=== PATIENT | male | born 1950 | race Caucasian/White ===

== ENCOUNTER 2018-07-13 22:15 | Emergency (ER) | payer OTHER, MEDICARE ==
[2018-07-13] MEDS ORDERED: Sodium Chloride 0.9% 1,000 ML ONE (22:32)
[2018-07-13] MEDS ORDERED: predniSONE 20 MG TAB ONE (22:47)
[2018-07-13 23:02] LABS: #Basophils 0.1 thou/uL (0.0-0.2); #Lymphocytes 0.3 thou/uL (1.20-3.40); #Monocytes 0.1 thou/uL (0.11-0.59); #Neutrophils 5.8 thou/uL (1.40-6.50); %Basophils 1.7 % (0.0-1.0); %Eosinophils 0.1 % (0.0-10.0); %Lymphocytes 5.4 % (21.0-51.0); %Neutrophils 90.9 % (42.0-75.0); Hemoglobin 14.3 g/dL (14.0-18.0); Mean Corpuscular HGB CONC 32.3 g/dL (32.0-36.0); Mean Corpuscular Hemoglobin 29.8 pg (27.0-31.0); Mean Corpuscular Volume 92.3 fL (78.0-98.0); Mean Platelet Volume 5.6 fL (7.4-10.4); Platelet Count 260 thou/uL (130-400); RBC Distribution Width 12.8 % (11.5-14.5); White Blood Cell (WBC) Count 6.4 thou/uL (4.8-10.8)
--- NOTE | 2018-07-13 23:07 | RAD ---
FTwo-view chest: HISTORY: COPD. Dyspnea. COMPARISON: 12/13/2017 FINDINGS: Hyperexpansion. Chronic stranding and parenchymal change in the right apex is stable. Vascu lar markings normal. No infiltrate or acute process. Heart size normal. Aortic calcification. Osseous structures unremarkable. IMPRESSION: Chronic lung findings appear stable. No acute process apparent.
--- NOTE | 2018-07-13 23:15 | RAD ---
FEXAM: Right RIBS: 2 views INDICATIONS: Rib pain COMPARISON: None. FINDINGS: Right ribs appear intact and unremarkable on this limited study. IMPRESSION: No acute finding
[2018-07-13 23:18] LABS: ALT (SGPT) 31 U/L (8-55); AST (SGOT) 39 U/L (5-34); Albumin 4.3 g/dL (3.4-4.8); Alkaline Phosphatase 73 U/L (40-150); Anion Gap 20 mmol/L (10-20); BUN (Urea Nitrogen) 5 mg/dL (8.4-25.7); Bilirubin, Total 0.6 mg/dL (0.2-1.2); Calc. Creatinine Clearance 0 mL/min (70-130); Calcium 9.8 mg/dL (7.8-10.44); Carbon Dioxide 22 mmol/L (23-31); Chloride 99 mmol/L (98-107); Estimated GFR-MDRD Greater than 90; Glucose 117 mg/dL (80-115); Magnesium 2.1 mg/dL (1.6-2.6); Potassium 4.5 mmol/L (3.5-5.1); Protein, Total 7.3 g/dL (5.8-8.1); Sodium 136 mmol/L (136-145)
[2018-07-14] MEDS ORDERED: Azithromycin 250 MG TAB ONE (00:12)
== END 2018-07-14 01:02 | disposition home or self-care (01) ==
LOC: NAV ERS 22:15
DX: J44.1 Chronic obstructive pulmonary disease with (acute) exacerbation (principal); E86.0 Dehydration; R79.89 Other specified abnormal findings of blood chemistry; I10 Essential (primary) hypertension; F41.9 Anxiety disorder, unspecified; F17.210 Nicotine dependence, cigarettes, uncomplicated; Z79.51 Long term (current) use of inhaled steroids; Z79.899 Other long term (current) drug therapy
CPT/HCPCS: 36415; 71046; 80053; 83605; 83735; 83880; 85025; 85379; 93005; 94640; 94760; 96360; 96361; J7050; J7620

== ENCOUNTER 2018-07-14 18:18 | Emergency (ER) | payer OTHER, MEDICARE ==
[~2018-07-14 18:18] MED LIST: Iopamidol 370 76% 100 ML VIAL ONE
[2018-07-14 19:12] LABS: #Lymphocytes 0.4 thou/uL (1.20-3.40); #Monocytes 0.8 thou/uL (0.11-0.59); #Neutrophils 5.6 thou/uL (1.40-6.50); %Basophils 0.7 % (0.0-1.0); %Lymphocytes 6.4 % (21.0-51.0); %Monocytes 11.8 % (0.0-10.0); %Neutrophils 81.1 % (42.0-75.0); Hemoglobin 15.7 g/dL (14.0-18.0); Mean Corpuscular HGB CONC 33.4 g/dL (32.0-36.0); Mean Corpuscular Hemoglobin 30.2 pg (27.0-31.0); Mean Corpuscular Volume 90.6 fL (78.0-98.0); Mean Platelet Volume 5.9 fL (7.4-10.4); Platelet Count 309 thou/uL (130-400); RBC Distribution Width 12.3 % (11.5-14.5); Red Blood Cell (RBC) Count 5.19 mill/uL (4.70-6.10); White Blood Cell (WBC) Count 6.9 thou/uL (4.8-10.8)
[2018-07-14 19:16] LABS: Anion Gap 19 mmol/L (10-20); Globulin 3.2 g/dL (2.4-3.5)
[2018-07-14 19:27] LABS: ALT (SGPT) 31 U/L (8-55); AST (SGOT) 37 U/L (5-34); Albumin 4.8 g/dL (3.4-4.8); Alkaline Phosphatase 80 U/L (40-150); BUN (Urea Nitrogen) 8 mg/dL (8.4-25.7); Bilirubin, Total 1.4 mg/dL (0.2-1.2); Calc. Creatinine Clearance 0 mL/min (70-130); Calcium 10.7 mg/dL (7.8-10.44); Carbon Dioxide 22 mmol/L (23-31); Chloride 90 mmol/L (98-107); Estimated GFR-MDRD Greater than 90; Glucose 135 mg/dL (80-115); Potassium 4.6 mmol/L (3.5-5.1); Sodium 126 mmol/L (136-145)
[2018-07-14] MEDS ORDERED: Lorazepam 2 MG/ML VIAL ONE (19:32)
[2018-07-14] MEDS ORDERED: hydrALAZINE 20 MG/ML VIAL ONE (20:01)
[2018-07-14] MEDS ORDERED: methylPREDNISolone Sod Succ/PF 125 MG/2 ML VIAL ONE (20:07)
--- NOTE | 2018-07-14 20:14 | CT ---
CTA CHEST WITH CONTRAST: 07/14/18 Multiple axial tomograms obtained through the chest with IV enhancement following a pulmonary angio p rotocol. Multiplanar reconstructions and 3D postprocessing. INDICATIONS: Dyspnea. Comparison made to prior CT angio of chest 06/21/16. FINDINGS: Pulmonary arteries show adequate opacification. No evidence of pulmonary embolism. Thoracic aorta is unremarkable. No evidence of dissection. Lungs show chronic parenchymal change. There is stranding and bullous changes in both upper lungs, mo re prominent in the right apex. Some residual scarring in the right suprahilar region with peribronch ial cuffing and thickening. This is an area of dense consolidation on the prior exam of 2017. Nonspecific mediastinal and hilar lymph nodes are seen. Views through upper abdomen unremarkable with small hepatic cysts again noted. IMPRESSION: 1. No evidence of pulmonary embolus. 2. Chronic lung parenchymal changes. Stranding and parenchymal scarring in the right upper lung is seen with peribronchial cuffing and prominent bullous change. Nonspecific mediastinal and right hi lar lymph nodes. POS: POPEYE
[2018-07-14] MEDS ORDERED: Albuterol Sulfate 2.5 mg/3 ml Neb ONE ×2 (20:27→20:43)
[2018-07-14] MEDS ORDERED: cefTRIAXone\\ROCEPHIN 1 GM VIAL ONE (21:30)
[2018-07-14] MEDS ORDERED: Magnesium Sulfate 2 GM/NS 0.9% 50 ML BAG ONE (21:30)
== END 2018-07-14 21:48 | disposition short-term general hospital (02) ==
LOC: NAV ERS 18:18
DX: J44.1 Chronic obstructive pulmonary disease with (acute) exacerbation (principal); I10 Essential (primary) hypertension; F41.9 Anxiety disorder, unspecified; F17.210 Nicotine dependence, cigarettes, uncomplicated; Z79.51 Long term (current) use of inhaled steroids; Z79.899 Other long term (current) drug therapy
CPT/HCPCS: 71275; 80053; 83605; 83880; 84484; 85025; 87040; 93005; 94640; 96374; 96375; J0360; J0696; J2060; J2930; J3475; J7611; J7620; Q9967